=== PATIENT | female | born 1970 | race Caucasian/White ===

== ENCOUNTER → 2020-09-09 | Outpatient (CLI) | payer OTHER ==
[~2020-09-09] MED LIST: LIDODERM 5% PATC1 EA TP; MASON NATURAL S1 CAP; NORCO 325 MG-51 TAB PO; PREDNISONE20 MG PO; PREMARIN .3MG0.3 MG PO; [UNRECOGNIZED DRUG - CODE]
== END ==
LOC: COL.RAD 11:14
DX: R10.32 Left lower quadrant pain (principal)

== ENCOUNTER → 2020-09-13 | Outpatient (CLI) | payer OTHER | LOC: COL.RAD 06:56 | DX: R10.32 Left lower quadrant pain (principal) ==

== ENCOUNTER 2020-09-19 13:00 | Emergency (ER) | payer OTHER ==
[~2020-09-19] VITALS: Ht 162.6 cm; Wt 75.0 kg
[2020-09-19 13:05] VITALS: TEMP 97.9
[2020-09-19] MEDS ORDERED: PREMARIN .3MG0.3 MG PO (13:13)
[2020-09-19] MEDS ORDERED: MASON NATURAL S1 CAP (13:14)
[2020-09-19] MEDS ORDERED: [UNRECOGNIZED DRUG - CODE] (13:14)
[2020-09-19 13:20] LABS: BASO % 0.4 % (0.0-2.0); EOS # 0.1 (0.0-0.7); EOS % 1.1 % (0-4.0); GRAN # 3.9 (1.4-6.5); GRAN % 69.5 % (42.2-75.2); HEMATOCRIT 43.8 % (37.0-47.0); HEMOGLOBIN 13.9 g/dl (12.5-16.0); LYMPH # 1.2 (1.2-3.4); MEAN CELL VOLUME 90 fl (80.0-100.0); MEAN CORPUSCULAR HEMOGLOBIN 29 pg (27.0-31.0); MEAN CORPUSCULAR HGB CONC 32 g/dl (33.0-37.0); MEAN PLATELET VOLUME 11.4 fl (7.4-10.4); MONO # 0.4 (0.1-0.6); MONO % 7.8 % (1.7-9.3); PLATELET COUNT 236 K/mm3 (130-400); RED BLOOD COUNT 4.87 M/mm3 (4.10-5.30); REDCELL DISTRIBUTION WIDTH-CV 13.2 % (11.5-14.5)
[2020-09-19 13:24] LABS: PROTHROMBIN TIME 11.6 SECONDS (9.7-12.8)
[2020-09-19 13:27] LABS: ALANINE AMINOTRANSFERASE 29 U/L (4-34); ALBUMIN 4.7 gm/dL (3.5-5.0); ALKALINE PHOSPHATASE 85 U/L (50-136); ANION GAP 9 mmol/L (7-16); AST,SGOT 40 U/L (15-37); BILIRUBIN,TOTAL 0.4 mg/dL (0.0-1.0); BLOOD UREA NITROGEN 8 mg/dL (7-17); CALCIUM 9.3 mg/dL (8.4-10.2); CARBON DIOXIDE 28 mmol/L (22-30); CHLORIDE 106 mmol/L (98-107); CREATININE, serum 0.53 (0.52-1.25); GLUCOSE 115 mg/dL (74-106); POTASSIUM 3.9 mmol/L (3.4-5.0); SODIUM 142 mmol/L (137-145); TOTAL PROTEIN 8.3 gm/dL (6.4-8.2)
[2020-09-19 13:38] LABS: TROPONIN-I < 0.012 ng/mL (0.000-0.035)
[2020-09-19 14:30] VITALS: BP 137/86; PULSE 79
[2020-09-19] MEDS ORDERED: PREDNISONE20 MG PO (14:33)
== END 2020-09-19 14:46 | disposition home or self-care (01) ==
LOC: COL.ER 13:00
PROVIDERS: Family Medicine
DX: M94.0 Chondrocostal junction syndrome [Tietze] (principal); I10 Essential (primary) hypertension

== ENCOUNTER 2020-11-04 07:18 | Emergency (ER) | payer OTHER ==
[~2020-11-04] VITALS: Ht 162.6 cm; Wt 77.3 kg
[~2020-11-04 07:18] MED LIST changes: -LIDODERM 5% PATC1 EA TP; -NORCO 325 MG-51 TAB PO
[2020-11-04 07:26] VITALS: TEMP 98.1
[2020-11-04] MEDS ORDERED: LIDODERM 5% PATC1 EA TP (08:58)
[2020-11-04] MEDS ORDERED: NORCO 325 MG-51 TAB PO (08:58)
[2020-11-04 09:22] VITALS: BP 125/86; PULSE 76
== END 2020-11-04 09:22 | disposition home or self-care (01) ==
LOC: COL.ER 07:18
DX: S20.20XA Contusion of thorax, unspecified, initial encounter (principal); M94.0 Chondrocostal junction syndrome [Tietze]; W18.39XA Other fall on same level, initial encounter; Y93.89 Activity, other specified
CPT/HCPCS: A9284; J1885

== ENCOUNTER → 2020-12-17 | Outpatient (CLI) | payer OTHER ==
[~2020-12-17] MED LIST changes: +LIDODERM 5% PATC1 EA TP; +NORCO 325 MG-51 TAB PO
== END ==
LOC: COL.RAD 12-10 10:00
DX: K82.8 Other specified diseases of gallbladder (principal)
CPT/HCPCS: A9537; J2805

== ENCOUNTER 2021-08-13 10:32 | Emergency (ER) | payer SELFPAY ==
[~2021-08-13] VITALS: Ht 162.6 cm; Wt 77.3 kg
[2021-08-13 10:38] VITALS: TEMP 97.9
[2021-08-13 11:04] LABS: BASO % 0.2 % (0.0-2.0); EOS # 0.1 K/mm3 (0.0-0.7); EOS % 0.8 % (0.0-4.0); GRAN # 7.3 K/mm3 (1.4-6.5); GRAN % 87.7 % (42.2-75.2); HEMATOCRIT 42.4 % (37.0-47.0); HEMOGLOBIN 14.2 g/dl (12.5-16.0); LYMPH # 0.5 K/mm3 (1.2-3.4); LYMPH % 5.5 % (20.0-51.0); MEAN CELL VOLUME 88 fl (80.0-100.0); MEAN CORPUSCULAR HEMOGLOBIN 29 pg (27-31); MEAN CORPUSCULAR HGB CONC 34 g/dl (33.0-37.0); MEAN PLATELET VOLUME 10.9 fl (7.4-10.4); MONO # 0.5 K/mm3 (0.1-0.6); MONO % 5.4 % (1.7-9.3); PLATELET COUNT 214 K/mm3 (130-400); RED BLOOD COUNT 4.83 M/mm3 (4.10-5.30)
[2021-08-13 11:14] LABS: PROTHROMBIN TIME 11.8 SECONDS (9.7-12.8)
[2021-08-13 11:22] LABS: ALANINE AMINOTRANSFERASE 20 U/L (0-55); ALBUMIN 4.5 gm/dL (3.5-5.0); ALKALINE PHOSPHATASE 85 U/L (40-150); ANION GAP 13 mmol/L (7-16); AST,SGOT 22 U/L (5-34); BILIRUBIN,TOTAL 0.6 mg/dL (0.2-1.2); BLOOD UREA NITROGEN 10 mg/dL (10-20); CALCIUM 9.5 mg/dL (8.4-10.2); CARBON DIOXIDE 25 mmol/L (22-29); CHLORIDE 104 mmol/L (98-107); CREATININE, serum 0.66 mg/dL (0.57-1.11); GLUCOSE 105 mg/dL (70-99); LIPASE 15 U/L (8-78); POTASSIUM 3.5 mmol/L (3.5-4.5); SODIUM 142 mmol/L (136-145); TOTAL PROTEIN 8.1 gm/dL (6.2-8.1)
[2021-08-13 11:41] LABS: TROPONIN-I < 0.010 ng/mL (0.00-0.033)
[2021-08-13 12:30] VITALS: BP 137/75; PULSE 105
== END 2021-08-13 12:46 | disposition home or self-care (01) ==
LOC: COL.ER 10:32
PROVIDERS: Nurse Practitioner Primary Care
DX: R07.89 Other chest pain (principal); Z28.310 Unvaccinated for COVID-19
CPT/HCPCS: J1200; J7030

== ENCOUNTER 2023-12-12 19:31 | Emergency (ER) | payer SELFPAY ==
[~2023-12-12] VITALS: Ht 167.6 cm; Wt 90.0 kg
[2023-12-12 19:33] VITALS: TEMP 97.4
[2023-12-12 19:51] LABS: BASO % 0.1 % (0.0-2.0); EOS # 0.1 K/mm3 (0.0-0.7); EOS % 1.4 % (0.0-4.0); GRAN # 4.5 K/mm3 (1.4-6.5); HEMATOCRIT 40.4 % (37.0-47.0); HEMOGLOBIN 13.3 g/dl (12.5-16.0); LYMPH # 1.8 K/mm3 (1.2-3.4); LYMPH % 25.6 % (20.0-51.0); MEAN CELL VOLUME 87 fl (80.0-100.0); MEAN CORPUSCULAR HEMOGLOBIN 29 pg (27-31); MEAN CORPUSCULAR HGB CONC 33 g/dl (33.0-37.0); MONO # 0.6 K/mm3 (0.1-0.6); MONO % 8.8 % (1.7-9.3); PLATELET COUNT 242 K/mm3 (130-400); RED BLOOD COUNT 4.66 M/mm3 (4.10-5.30); REDCELL DISTRIBUTION WIDTH-CV 13.2 % (11.5-14.5)
[2023-12-12 20:06] LABS: ALANINE AMINOTRANSFERASE 20 U/L (0-55); ALBUMIN 3.7 g/dL (3.5-5.0); ALKALINE PHOSPHATASE 115 U/L (40-150); ANION GAP 11 mmol/L (7-16); AST,SGOT 20 U/L (5-34); BILIRUBIN,TOTAL 0.2 mg/dL (0.2-1.2); BLOOD UREA NITROGEN 18 mg/dL (10-20); CALCIUM 10.1 mg/dL (8.4-10.2); CHLORIDE 111 mEq/L (98-107); CREATININE, serum 0.65 mg/dL (0.57-1.11); GLUCOSE 105 mg/dL (70-99); LIPASE 22 U/L (8-78); POTASSIUM 3.9 mEq/L (3.5-4.5); SODIUM 142 mEq/L (136-145); TOTAL PROTEIN 6.8 g/dl (6.2-8.1)
[2023-12-12 20:11] LABS: URINE APPEARANCE CLEAR (CLEAR/HAZY); URINE BLOOD NEGATIVE (NEGATIVE); URINE COLOR YELLOW (YELLOW); URINE GLUCOSE NEGATIVE (NEGATIVE); URINE KETONE NEGATIVE (NEGATIVE); URINE NITRATE NEGATIVE (NEGATIVE); URINE PROTEIN(semi-quant) NEGATIVE (NEGATIVE); URINE UROBILINOGEN 0.2 E.U/dL (0.2-1.0)
[2023-12-12 20:12] LABS: TROPONIN-I < 0.010 ng/mL (0.00-0.033)
[2023-12-12 20:17] LABS: COLLECTION METHOD CLEAN CATCH
[2023-12-12 20:56] VITALS: BP 142/88; PULSE 79
== END 2023-12-12 20:56 | disposition home or self-care (01) ==
LOC: COL.ER 19:31
PROVIDERS: Nurse Practitioner Primary Care
DX: R53.83 Other fatigue (principal)